=== PATIENT | female | born 1955 | race Caucasian/White ===

== ENCOUNTER 2018-11-25 08:56 | Emergency (ER) | payer BC ==
[~2018-11-25] VITALS: Ht 165.1 cm; Wt 106.6 kg
[~2018-11-25 08:56] MED LIST: ACHD5005 PO; ALBU8.5H2 IH; ALPR0.5T PO; CLN150C PO; DICL75TA2 PO; ENXP30I.3 SC; ESTR42.52 VG; HYDR-3714 PO; LISI20TA PO; POTA10CA43 PO; TRAZ-144 PO
[2018-11-25] MEDS ORDERED: DEXAMETHASONE 4 MG TAB (DECADRON) PO SCH (09:30)
[2018-11-25] MEDS ORDERED: DEXAMETHASONE 4 MG/ML SDV (DECADRON) PO ONE (09:30)
[2018-11-25] MEDS ORDERED: KETOROLAC 60 MG/2 ML VIAL IM ONE (09:30)
--- NOTE | 2018-11-25 09:38 | ED Back Pain ---
General Chief Complaint: Back Problems Stated Complaint: BACK PAIN Nursing Triage Note: PT REPORTS SHE STARTED HAVING SOME LEFT LOWER BACK PAIN THAT RADIATES TO THE FRONT OF HER HIP YESTERDAY, BUT THIS AM IT WAS UNBEARABLE AND SHE TOOK SOME OF HER OLD HYDROCODONE FROM A PREVIOUS KNEE SURGERY. SHE REPORTS IT HAS HELPED SOME BUT STILL RATES PAIN 9/10. PT ALSO REPORTS THAT SHE IS SCHEDULED FOR A KNEE SURGERY ON THE LEFT SIDE. Nursing Sepsis Screen: No Definite Risk History of Present Illness Date Seen by Provider: Nov 25, 2018 Time Seen by Provider: 09:34 Initial Comments Patient presenting to ED for evaluation of low back pain that has been going on for the past 2 days but is much worse this morning. She says that it is mostly left lower lumbar and causes her some pain that shoots around to her leg. She says she has had back surgery 25 years ago and has intermittent back issues but it was very painful to get up and move and she said she had to take 2 hydr ocodone sticking out of bed today due to the pain. She says she takes Celebrex daily which has not been helping either. She denies any fevers chills bowel pain nausea vomiting dysuria hematuria bowel or bladder incontinence unilateral weakness numbness or tingling. She is scheduled to have a left knee revision later this year. She is in no obvious distress with normal vital signs. Allergies and Home Medications Allergies Coded Allergies: Penicillins (Verified Allergy, RASH, 06/04/13) Home Medications Albuterol 8.5 Gm Hfa.aer.ad, 1 PUFF IH Q4H PRN for SHORTNESS OF BREATH, (Reported) PRN SHORTNESS OF BREATH Alprazolam 0.5 Mg Tablet, 0.5 MG PO BID PRN for ANXIETY, (Reported) PRN ANXIETY Diclofenac Sodium 75 Mg Tablet.dr, 75 MG PO DAILY, (Reported) Estradiol 42.5 Gm Cream.appl, 1 APPFUL VG MWF, (Reported) TAKES AT BEDTIME ON Hydrocodone Bit/Acetaminophen 1 Tab Tablet, 1-2 TAB PO Q4-6 HRS Prescribed by: JAJA BENOIT on 08/25/13 1334 Lisinopril 20 Mg Tablet, 20 MG PO DAILY, (Reported) Potassium Chloride 10 Meq Capsule.sa, 10 MEQ PO DAILY WITH FOOD, (Reported) Trazodone Hcl 50 Mg Tablet, 50 MG PO TID PRN for PAIN, (Reported) PRN PAIN Patient Home Medication List Home Medication List Reviewed: Yes Review of Systems Constitutional: no symptoms reported Respiratory: no symptoms reported Cardiovascular: no symptoms reported Gastrointestinal: no symptoms reported Genitourinary: no symptoms reported Musculoskeletal: back pain Psychiatric/Neurological: No Symptoms Reported Past Yvhuqnx-Xuydeb-Agbwlu Hx Patient Social History Alcohol Use: Denies Use Recreational Drug Use: No Smoking Status: Never a Smoker 2nd Hand Smoke Exposure: Yes Recent Foreign Travel: No Contact w/Someone Who Travel: No Recent Infectious Disease Expo: No Recent Hopitalizations: No Physical Abuse: No Sexual Abuse: No Mistreated: No Fear: No Immunizations Up To Date Date of Influenza Vaccine: Jan 14, 2013 Seasonal Allergies Seasonal Allergies: No Past Medical History Surgeries: Yes (FOOT SX) Appendectomy, Gallbladder, Orthopedic Respiratory: No Cardiac: Yes Hypertension Neurological: No Genitourinary: No Gastrointestinal: No Musculoskeletal: Yes Back Injury Endocrine: No HEENT: No Cancer: No Psychosocial: Yes Sleep Difficulties, Anxiety Integumentary: No Blood Disorders: No Physical Exam Vital Signs Vital Signs - First Documented 11/25/18 09:10 Temp 97.0 Pulse 81 Resp 18 B/P (MAP) 148/68 (94) Pulse Ox 98 O2 Delivery Room Air Capillary Refill : Less Than 3 Seconds Height, Weight, BMI Height: 5'5.00" Weight: 235lbs. oz. 106.446555rh; BMI Method:Stated General Appearance: No Apparent Distress, WD/WN Cardiovascular: Regular Rate, Rhythm Respiratory: Lungs Clear Gastrointestinal: Non Tender, Soft Back: Decreased Range of Motion, Other (left lumbar paraspinal tenderness to palpation) Extremity: Normal Capillary Refill Neurologic/Psychiatric: Alert, Oriented x3, No Motor/Sensory Deficits Skin: Normal Color, Warm/Dry Progress/Results/Core Measures Results/Orders My Orders Orders - ROLAN ORANTES DO Ketorolac Injection (Toradol Injection) (11/25/18 09:30) Dexamethasone Tablet (Decadron Tablet) (11/25/18 09:30) Dexamethasone Injection (Decadron Inject (11/25/18 09:30) Vital Signs/I&O 11/25/18 09:10 Temp 97.0 Pulse 81 Resp 18 B/P (MAP) 148/68 (94) Pulse Ox 98 O2 Delivery Room Air Blood Pressure Mean: 94 Progress Progress Note : Progress Note Patient with likely muscular skeletal pain given it is worse with movement and palpation. I discussed at length with her that further imaging studies here would not be helpful and that she may need a follow with her primary care provider to get an MRI. She has no red flag signs or symptoms necessitating emergent testing or imaging. Patient will be encouraged to continue Celebrex and staying mobile but avoiding irritating movements. Patient will be discharged stable condition told to follow with primary care provider and come back to the ED sooner with worsening pain or logic changes other general concerns. Patient aware and agreeable with plan for discharge and verbalized understanding of the above instructions. Departure Impression Primary Impression: Lumbar sprain Qualified Codes: S33.5XXA - Sprain of ligaments of lumbar spine, initial encounter Disposition: 01 HOME, SELF-CARE Condition: Stable Departure-Patient Inst. Referrals: MAJOR CISNEROS MD (PCP/Family) Primary Care Physician Patient Instructions: Low Back Pain (DC) Scripts Hydrocodone/Acetaminophen ([place] 5-325 Tablet) 1 Each Tablet 1 TAB PO Q4-6HR PRN for PAIN-MODERATE TO SEVERE MDD 10 TABS for 7 Days, #14 TAB Prov: ROLAN ORANTES DO 11/25/18 ROLAN ORANTES DO Nov 25, 2018 09:38
[2018-11-25] MEDS ORDERED: HYDR-4226 PO (09:42)
[2018-11-25 09:47] VITALS: BP 124/72
--- OUTSIDE RECORDS SUMMARY | 2018-11-25 11:46 | XMS REPORT | Continuity of Care Document ---
Author Organization Unknown Address Unknown Phone Unavailable Allergies There is no data. Medications There is no data. Problems There is no data. Procedures There is no data. Results Test Result Range LIPID PANEL - 09/26/18 08:41 CHOLESTEROL, TOTAL 166 mg/dL <200 HDL CHOLESTEROL 58 mg/dL >50 TRIGLYCERIDES 91 mg/dL <150 LDL-CHOLESTEROL 89 mg/dL (calc) NRG CHOL/HDLC RATIO 2.9 (calc) <5.0 NON HDL CHOLESTEROL 108 mg/dL (calc) <130 MICROALBUMIN/CREATININE RATIO, URINE - 09/26/18 08:41 CREATININE, RANDOM URINE 142 mg/dL 20-275 MICROALBUMIN 0.3 mg/dL See Note: MICROALBUMIN/CREATININE RATIO, RANDOM URINE 2 mcg/mg creat <30 CMP - 09/26/18 08:41 GLUCOSE 103 mg/dL 65-99 UREA NITROGEN (BUN) 24 mg/dL 7-25 CREATININE 1.13 mg/dL 0.50-0.99 eGFR NON-AFR. ENGLISH 52 mL/min/1.73m2 > OR=60 eGFR 60 mL/min/1.73m2 > OR=60 BUN/CREATININE RATIO 21 (calc) 6-22 SODIUM 140 mmol/L 135-146 POTASSIUM 4.4 mmol/L 3.5-5.3 CHLORIDE 107 mmol/L 98-110 CARBON DIOXIDE 25 mmol/L 20-32 CALCIUM 9.2 mg/dL 8.6-10.4 PROTEIN, TOTAL 7.0 g/dL 6.1-8.1 ALBUMIN 4.4 g/dL 3.6-5.1 GLOBULIN 2.6 g/dL (calc) 1.9-3.7 ALBUMIN/GLOBULIN RATIO 1.7 (calc) 1.0-2.5 BILIRUBIN, TOTAL 0.5 mg/dL 0.2-1.2 ALKALINE PHOSPHATASE 92 U/L 33-130 AST 15 U/L 10-35 ALT 12 U/L 6-29 CBC - 09/26/18 08:41 WHITE BLOOD CELL COUNT 6.8 Thousand/uL 3.8-10.8 RED BLOOD CELL COUNT 4.58 Million/uL 3.80-5.10 HEMOGLOBIN 13.0 g/dL 11.7-15.5 HEMATOCRIT 39.5 % 35.0-45.0 MCV 86.2 fL 80.0-100.0 MCH 28.4 pg 27.0-33.0 MCHC 32.9 g/dL 32.0-36.0 RDW 13.6 % 11.0-15.0 PLATELET COUNT 245 Thousand/uL 140-400 MPV 10.5 fL 7.5-12.5 ABSOLUTE NEUTROPHILS 4032 cells/uL 2102-0472 ABSOLUTE LYMPHOCYTES 2094 cells/uL 850-3900 ABSOLUTE MONOCYTES 544 cells/uL 200-950 ABSOLUTE EOSINOPHILS 102 cells/uL 15-500 ABSOLUTE BASOPHILS 27 cells/uL 0-200 NEUTROPHILS 59.3 % NRG LYMPHOCYTES 30.8 % NRG MONOCYTES 8.0 % NRG EOSINOPHILS 1.5 % NRG BASOPHILS 0.4 % NRG A1C - 09/26/18 08:41 HEMOGLOBIN A1c 6.1 % of total Hgb <5.7 Encounters ACCT No. Visit Date/Time Discharge Status Pt. Type Provider Facility Loc./Unit Complaint [id number] 10/01/2018 11:00:00 10/01/2018 23:59:59 CLS Outpatient MAJOR CISNEROS [facility] [id number] 09/26/2018 08:15:00 Document Registration [id number] 08/25/2013 06:09:00 08/25/2013 14:14:00 DIS Outpatient [id number] 08/20/2013 09:19:00 08/20/2013 23:59:59 CLS Outpatient [id number] 06/09/2013 06:09:00 06/09/2013 10:55:00 DIS Outpatient [id number] 06/04/2013 14:25:00 06/04/2013 23:59:59 CLS Outpatient
== END 2018-11-25 09:47 | disposition home or self-care (01) ==
LOC: EDUNIT# 08:56 → ER FS 08:58
DX: S33.5XXA Sprain of ligaments of lumbar spine, initial encounter (principal); I10 Essential (primary) hypertension; F41.9 Anxiety disorder, unspecified; Z77.22 Contact with and (suspected) exposure to environmental tobacco smoke (acute) (chronic); Z88.0 Allergy status to penicillin; Z90.49 Acquired absence of other specified parts of digestive tract; X50.1XXA Overexertion from prolonged static or awkward postures, initial encounter
CPT/HCPCS: 99284

== ENCOUNTER → 2023-03-20 | Outpatient (CLI) | payer BC ==
[~2023-03-20] MED LIST changes: +HYDR-4226 PO
--- NOTE | 2023-03-20 10:08 | Diagnostic Imaging Report ---
CLINICAL INDICATION: Patient has low back pain times several months with no known injury. Patient had previous lumbar spine surgery 29 years ago. EXAM: MRI of the lumbar spine performed without contrast. Sequences include sagittal T2, sagittal T1, sagittal T2 fat-sat, and axial T2. COMPARISON: None. FINDINGS: There are postop changes with metallic susceptibility hardware artifact at the L3-L4 disk space regions. There is no acute lumbar spine fracture or dislocation. There is mild right curvature of the lumbar spine. There are Modic type I degenerative signal changes involving the L3-L4 endplates. There are Modic type II degenerative signal changes involving the L2-L3 endplates. The visualized portions of the distal thoracic spinal cord, conus medullaris, and cauda equina nerve roots are unremarkable. The conus medullaris tip is seen at the L1-L2 intervertebral level. L1-L2: There is no significant central spinal canal or neuroforaminal narrowing. L2-L3: There is a diffuse disk bulge, moderate to severe loss of disk space height, and endplate irregularity. There are disk spurs extending into the foraminal regions bilaterally. There is moderate bilateral facet arthropathy/hypertrophy. There is mild central canal narrowing. There is mild right neuroforaminal narrowing and severe left neuroforaminal narrowing. L3-L4: There is diffuse disk bulge with central posterior disk extrusion/herniation with slight cephalad disk migration. There is moderate bilateral facet arthropathy/hypertrophy and ligamentum flavum buckling. There is severe central canal stenosis and severe bilateral neuroforaminal narrowing. L4-L5: There is a diffuse disk bulge with mild loss of disk space height. There is severe bilateral facet arthropathy/hypertrophy and ligamentum flavum buckling. There is a small synovial cyst extending anteriorly from the right L4-L5 facets which measures 4 mm x 4 mm in greatest axial dimension and 6 mm in craniocaudal dimension. L5-S1: There is mild diffuse disk bulge. There is moderate bilateral facet arthropathy/hypertrophy. There is no significant central canal or neuroforaminal narrowing. IMPRESSION: 1: There is multilevel lumbar spine degenerative disease as described in detail above. 2: There is an L3-L4 diffuse disk bulge with superimposed central posterior disk extrusion/herniation. There is severe central canal stenosis and severe bilateral neuroforaminal narrowing. Dictated by: Dictated on workstation # [id number]
== END ==
LOC: RAD 07:47
PROVIDERS: ATTEND Registered Nurse
DX: M51.36 Other intervertebral disc degeneration, lumbar region (principal); M51.37 Other intervertebral disc degeneration, lumbosacral region; M47.816 Spondylosis without myelopathy or radiculopathy, lumbar region; M47.817 Spondylosis without myelopathy or radiculopathy, lumbosacral region; M48.061 Spinal stenosis, lumbar region without neurogenic claudication; M43.9 Deforming dorsopathy, unspecified
CPT/HCPCS: 72148